=== PATIENT | male | born 1985 | race Caucasian/White ===

== ENCOUNTER 2020-12-11 07:24 | Day surgery (SDC) | payer OTHER ==
[2020-12-07 12:14] LABS: Absolute Lymphocytes (CBC) 1.5 K/uL (0.7-4.9); Basophils % 1.3 % (0-1.3); Hematocrit 44.8 % (39.6-49.0); Lymphocytes % 23.6 % (15.3-44.8); MPV 9.6 fL (7.6-11.3)
--- NOTE | 2020-12-07 12:15 | RAD REPORT ---
EXAM DESCRIPTION: RAD - Chest Pa And Lat (2 Views) - 12/07/2020 11:56 am CLINICAL HISTORY: preop COMPARISON: Chest Pa And Lat (2 Views) dated 03/31/2019; Chest Single View dated 01/08/2017; Chest Fo r Pe Angio dated 01/08/2017 FINDINGS: No evidence of edema or pneumonia. The heart size is within normal limits.No acute osseous abnormality. No significant pleural effusions or pneumothorax. Azygos fissure, a normal variant. Loo p recorder overlies the heart. IMPRESSION: No acute cardiopulmonary disease.
[2020-12-07 12:25] LABS: Protime INR 1.46
[2020-12-07 12:27] LABS: BUN Blood Urea Nitrogen 12 mg/dL (7-18); Bicarbonate 30 mmol/L (21-32); Glucose Level 86 mg/dL (74-106); Potassium 4.4 mmol/L (3.5-5.1); Sodium Level 141 mmol/L (136-145)
--- NOTE | 2020-12-08 08:03 | EKG ---
Test Date: 2020-12-07 Test Time: 10:38:24 Website Optimization Strategist: ANDREY MEASUREMENT RESULTS: Intervals: Rate: 70 IL: 156 QRSD: 94 QT: 368 QTc: 397 [place]: P: 28 IL: 156 QRS: 7 T: 52 INTERPRETIVE STATEMENTS: Normal sinus rhythm Normal ECG Compared to ECG 03/31/2019 12:11:12 Sinus arrhythmia no longer present T-wave abnormality no longer present Electronically Signed On 12-08-20 08:02:58 CDT by Eddy Casarez
[2020-12-11] MEDS ORDERED: CEFAZOLIN/SWI 2gm 2 GM/20 ML SYR ONE (08:08)
[2020-12-11] MEDS ORDERED: Ringers Lactate 1,000 ML IV ONE (08:08)
[2020-12-11] MEDS ORDERED: FENTANYL CITR 100 MCG/2 ML ONE (08:29)
[2020-12-11] MEDS ORDERED: dexAMETHasone 10 MG/ML VIAL ONE (08:29)
[2020-12-11] MEDS ORDERED: ONDANSETRON 4 MG/2 ML VIAL ONE (08:29)
[2020-12-11] MEDS ORDERED: MIDAZOLAM HCL 2 MG/2 ML INJ ONE (08:29)
[2020-12-11] MEDS ORDERED: propofoL 200 MG/20 ML VIAL IV ONE (08:29)
[2020-12-11] MEDS ORDERED: LIDOCAINE 1% MPF 5 ML VIAL ONE (08:29)
[2020-12-11] MEDS ORDERED: KETOROLAC 30 MG/ML INJ ONE (08:29)
[2020-12-11] MEDS ORDERED: PHENAZOPYRIDINE 100MG TAB PO ONE (10:05)
[2020-12-11] MEDS ORDERED: CODEINE 30MG/APAP 300MG TAB PO PRN (10:05)
[2020-12-11 10:43] VITALS: BP 110/62; TEMP 97.8; O2SAT 99
--- NOTE | 2020-12-11 19:10 | OP ---
Date of Procedure: 12/11/2020 Surgeon: JOSE OTT Preoperative Diagnoses: 1.History of embryonal carcinoma of the testis. 2.History of urothelial carcinoma of the bladder primary. 3.Primary diagnosis bladder lesion. Postoperative Diagnoses: 1.History of embryonal carcinoma of the testis. 2.History of urothelial carcinoma of the bladder primary. 3.Primary diagnosis bladder lesion. Principal Procedure: Cystoscopy and bladder biopsies with fulguration. Indication For Procedure: Mr. Kruse presented to the Urology Clinic with a history of embryonal carc inoma of the bladder, who had undergone BEP chemotherapy with a residual mass and subsequent RPLND. He also had a history of urothelial carcinoma of the bladder, and on surveillance cystoscopy, there w ere areas of mucosal irregularity noted lateral to the right ureteral orifice and in the posterior do me on the left. As a result, he was recommended for biopsy of these lesions to rule out underlying u rothelial malignancy. Procedure In Detail: The patient was consented in the preoperative holding area before being transfe rred to the operative suite where general anesthesia was induced. He was given Ancef 2 g IV antimicr obial prophylaxis and pneumo boots were provided for DVT prophylaxis. He was placed in the lithotomy position, padded and secured to the table appropriately. The case was begun after his genitalia was prepped using Hibiclens and draped in standard fashion. Using a 22-Spanish rigid cystoscope to trave rse the urethra and into the bladder with ease, the bladder was surveyed in its entirety. Again note d lateral to the right ureteral orifice were subtle patches of mucosal irregularity. Using narrow ba nd imaging, those areas of mucosal irregularity did evidence potential increased vascularity. As a r esult, an additional lesion was noted within the left posterior and both of these were biopsied in or pattie to adequately sample the lesion. They were sent for pathologic analysis as left posterior dome a nd lateral to the right ureteral orifice. Then, the base of each of these lesions was carefully fulg urated and the bladder was decompressed to ensure no bleeding. When no residual bleeding was noted, the bladder was completely decompressed, and the patient was taken out of lithotomy position. He was then awakened from general anesthesia before being transferred to a stretcher and then to the [facility] room in a good condition. Complications: None. Discharge Disposition: He should follow up in the Urology Clinic to discuss the results of the patho logy within 1-2 weeks. Subsequent management will be determined at that time. HEATHER/KARAN Voice ID: [id number] Report ID: [id number]
== END 2020-12-11 11:04 | disposition home or self-care (01) ==
LOC: OR 07:24
PROVIDERS: ATTEND Urology
PROC: 0TBB8ZX Excision of Bladder, Via Natural or Artificial Opening Endoscopic, Diagnostic (ICD-10-PCS; principal; 2020-12-11 09:00)
DX: D09.0 Carcinoma in situ of bladder (principal); Z85.51 Personal history of malignant neoplasm of bladder; Z85.47 Personal history of malignant neoplasm of testis
CPT/HCPCS: 52204; 93005; 87088; 85025; 87086; 80048; 36415; 85610; 88305 ×2; 85730; 71046; J2704; J2250; J3010; J1100; J0690; J7120; J2405

== ENCOUNTER 2021-03-19 07:02 | Day surgery (SDC) | payer OTHER ==
[2021-03-14 12:37] LABS: BUN Blood Urea Nitrogen 14 mg/dL (7-18); Bicarbonate 28 mmol/L (21-32); Glucose Level 89 mg/dL (74-106); Potassium 4.6 mmol/L (3.5-5.1); Sodium Level 139 mmol/L (136-145)
[2021-03-19] MEDS ORDERED: Ringers Lactate 1,000 ML IV ONE (07:52)
[2021-03-19] MEDS ORDERED: CEFAZOLIN/SWI 2gm 2 GM/20 ML SYR ONE (07:53)
[2021-03-19] MEDS ORDERED: CELECOXIB 100 MG CAPSULE ONE (08:39)
[2021-03-19] MEDS ORDERED: ACETAMINOPHEN 500 MG TAB ONE (08:39)
[2021-03-19] MEDS ORDERED: FENTANYL CITR 100 MCG/2 ML ONE (09:01)
[2021-03-19] MEDS ORDERED: LIDOCAINE 1% MPF 5 ML VIAL ONE (09:01)
[2021-03-19] MEDS ORDERED: propofoL 200 MG/20 ML VIAL IV ONE (09:01)
[2021-03-19] MEDS ORDERED: MIDAZOLAM HCL 2 MG/2 ML INJ ONE (09:01)
[2021-03-19] MEDS ORDERED: CODEINE 30MG/APAP 300MG TAB PO PRN (09:04)
[2021-03-19] MEDS ORDERED: PHENAZOPYRIDINE 100MG TAB PO ONE ×2 (09:04→10:50)
[2021-03-19] MEDS ORDERED: dexAMETHasone 10 MG/ML VIAL ONE (09:31)
[2021-03-19 10:11] VITALS: O2SAT 98
[2021-03-19 10:49] VITALS: BP 123/68; TEMP 97.1
--- NOTE | 2021-03-19 13:07 | OP ---
Surgeon: JOSE OTT Preoperative Diagnosis: Carcinoma in situ of the bladder. Postoperative Diagnoses: 1.Carcinoma in situ of the bladder. 2.Status post induction BCG. Principle Procedures: Cystoscopy using narrow band imaging and bladder biopsies with fulguration. Indication For Procedure: Mr. Kruse presented to Urology Clinic with history of urothelial carcinoma of the bladder, but area of a slight mucosal change visible lateral to the right ureteral orifice. He underwent cystoscopic biopsies, which revealed CIS of the bladder and afterwards was counseled and treated with an induction course of BCG. He presents today for repeat cystoscopy and bladder biopsi es to confirm clearance of the BCG. Procedure In Detail: The patient was consented in the preoperative holding area before being transfe rred to the operative suite where general anesthesia was induced. He was given Ancef 2 g IV antimicr obial prophylaxis and pneumo boots were provided for DVT prophylaxis. He was placed in the lithotomy position, padded and secured to the table appropriately. His genitalia were prepped using Hibiclens and he was draped in standard fashion. The case was begun using a 22-Luxembourgish rigid cystoscope to tra verse the urethra and into the bladder with ease. The bladder was surveyed in its entirety and there were no papillary mucosal lesions, foreign bodies, or stones. There was an area of scar in the post erior wall of the bladder as well as the posterior dome, likely sites of prior resection, as well as an area of scar lateral to the right ureteral orifice, which I had previously biopsied. The mucosa w as mildly irregular at the border of the resection site in the area lateral to the right ureteral carl fice and around the posterior dome slightly to the left site of prior biopsy. The remainder of the b ladder was free of suspicious mucosal lesion or change. I then employed narrow band imaging and surv ey the entirety of the bladder including the areas of slight mucosal change as mentioned earlier and there were really no areas of suspicion on narrow band imaging. However, to confirm clearance of the CIS, multiple biopsies were taken in the region of the right ureteral orifice and extending into the right lateral posterior wall of the bladder. Additionally, 3 biopsies were taken in the region arou nd the posterior dome biopsy site slightly to the left for a total of 7 biopsies taken. These were a ll sent for pathologic analysis, and then I carefully fulgurated each of the sites using a Bugbee ana maría ctrode at a cautery setting of 30. Once each of the sites was carefully fulgurated, I decompressed t he bladder and then made a careful search for bleeding. No active oozing was noted and where any sli ghtly erythematous area of subcutaneous tissue was noted, this was also fulgurated given the need for the patient to resume the Xarelto as soon as possible. Again, once his bladder was completely decom pressed and there was no evidence of ooze at all, the bladder was completely decompressed. I then re filled the bladder and surveyed the bladder neck region exclusively with a 70-degree lens to confirm no additional mucosal lesions. When none were noted, I then decompressed his bladder, removed the cy stoscope, took him out of the lithotomy position and then awakened him from general anesthesia before transferring him to a stretcher and then to the recovery room in good condition. Complications: None. Discharge Disposition: We will send him home with followup in approximately 2 weeks' time and instru ct him to resume his Xarelto within the next 3 days after his urine is preferably clear. Subsequent followup will then be determined, specifically whether to initiate maintenance BCG versus observation or if additional therapy is required. HEATHER/KARAN Voice ID: [id number] Report ID: [id number]
== END 2021-03-19 10:45 | disposition home or self-care (01) ==
LOC: OR 07:02
PROVIDERS: ATTEND Urology
PROC: 0TBB8ZX Excision of Bladder, Via Natural or Artificial Opening Endoscopic, Diagnostic (ICD-10-PCS; principal; 2021-03-19 08:30)
DX: D09.0 Carcinoma in situ of bladder (principal); Z20.822 Contact with and (suspected) exposure to COVID-19
CPT/HCPCS: 87088; 87086; 80048; 36415; 88305; 52204; U0003; J2704; J2250; J3010; J1100; J0690; J7120

== ENCOUNTER 2021-07-16 10:50 | Day surgery (SDC) | payer OTHER ==
[2021-07-11 11:53] LABS: Hematocrit 47.2 % (39.6-49.0); Lymphocytes % 17.7 % (15.3-44.8); MPV 9.3 fL (7.6-11.3); RBC Red Blood Cell Count 5.25 M/uL (4.33-5.43)
[2021-07-11 11:55] LABS: Protime INR 1.52
[2021-07-11 12:07] LABS: Potassium 3.8 mmol/L (3.5-5.1)
[2021-07-16] MEDS ORDERED: Ringers Lactate 1,000 ML IV ONE (10:58)
[2021-07-16] MEDS ORDERED: CEFAZOLIN/SWI 2gm 2 GM/20 ML SYR ONE (10:59)
[2021-07-16] MEDS ORDERED: ACETAMINOPHEN 500 MG TAB ONE (12:15)
[2021-07-16] MEDS ORDERED: FENTANYL CITR 250 MCG/5 ML ONE (13:35)
[2021-07-16] MEDS ORDERED: dexAMETHasone 10 MG/ML VIAL ONE (13:35)
[2021-07-16] MEDS ORDERED: MIDAZOLAM HCL 2 MG/2 ML INJ ONE (13:35)
[2021-07-16] MEDS ORDERED: propofoL 200 MG/20 ML VIAL IV ONE (13:35)
[2021-07-16] MEDS ORDERED: LIDOCAINE 1% MPF 5 ML VIAL ONE (13:35)
[2021-07-16] MEDS ORDERED: ONDANSETRON 4 MG/2 ML VIAL ONE (13:36)
[2021-07-16] MEDS ORDERED: KETOROLAC 30 MG/ML INJ ONE (14:38)
[2021-07-16] MEDS ORDERED: CODEINE 30MG/APAP 300MG TAB PO PRN (15:20)
[2021-07-16] MEDS ORDERED: PHENAZOPYRIDINE 100MG TAB PO ONE ×2 (15:20→16:19)
--- NOTE | 2021-07-16 15:28 | RAD REPORT ---
EXAM DESCRIPTION: RAD - Urethrocystogrphy Retrograde - 07/16/2021 3:04 pm CLINICAL HISTORY: ICD N 20.0 FINDINGS: 8 fluoroscopic spot images obtained. Fluoroscopy time.27 minutes Each ureter was cannulated and contrast administered. Examination was performed by Dr Nielson
[2021-07-16 15:41] VITALS: O2SAT 100
[2021-07-16] MEDS ORDERED: CODEINE 30MG/APAP 300MG TAB ONE (16:13)
[2021-07-16 16:44] VITALS: BP 129/78; TEMP 97.1
--- NOTE | 2021-07-17 01:43 | OP ---
Surgeon: JOSE OTT Preoperative Diagnoses: 1.Carcinoma in situ of the bladder. 2.Elevated risk Cxbladder genetic testing of the urine. Postoperative Diagnoses: 1.Carcinoma in situ of the bladder. 2.Elevated risk Cxbladder genetic testing of the urine. Principal Procedures: 1.Cystoscopy with random and targeted bladder biopsies with fulguration. 2.Bilateral retrograde pyelogram. 3.Bilateral selective ureteral cytologies. 4.Prostatic urethral biopsies x2 with fulguration. Indication For Procedure: Mr. Kruse presented to the Urology Clinic and underwent cystoscopic evalua tion revealing a slightly erythematous patch lateral to the left ureteral orifice. He underwent a bi opsy, which revealed CIS of the bladder, and subsequently underwent induction BCG. Maintenance evalu ation was also without papillary lesion or other strongly suspected tumor cystoscopically, and cytolo gic and fluorescence in situ hybridization studies were also unremarkable, but genetic testing of the urine from the bladder called Cxbladder monitor suggested the potential slightly elevated risk of un diagnosed urothelial malignancy. As a result, after counseling, he elected to be more certain, and s o instead of observing, he elected to undergo definitive operative evaluation with the procedures abo ve. Procedure In Detail: The patient was consented in the preoperative holding area before being transfe rred to the operative suite, where general anesthesia was induced. He was given Ancef 2 g IV antimic robial prophylaxis and pneumo boots were provided for DVT prophylaxis. He was placed in the lithotom y position, padded and secured to the table appropriately. His genitalia were prepped using Hibiclen s and he was draped in standard fashion. The case was begun using a 22-Burmese rigid cystoscope to tr averse the urethra and into the bladder with ease. The bladder was surveyed in its entirety, and the area of prior biopsies within the right lateral wall and lateral to the right ureteral orifice were easily visualized along with some areas of biopsies taken posteriorly and one in the left lateral wal l. No papillary urothelial lesions were noted. A couple of areas of the mucosa were slightly pigmen rhiannon, but no suspicious areas for CIS. There was some hypervascularity at some point posteriorly thro ughout the bladder. As a result, I then turned my attention to the left ureteral orifice, which was cannulated using the tip of a 5-Burmese ureteral access catheter. Selective cytology was then obtaine d by instilling 10 cc of sterile water and then aspirating and allowing several cubic centimeters of urine to drain from the kidney, which was sent for left ureteral wash cytologic analysis. I then per formed a retrograde pyelogram on the left side. 1.Left retrograde pyelography: Using a 70:30 mixture of Omnipaque and saline, contrast was injected via the lumen of the 5-Burmese ureteral access catheter and did propagate up a nondilated distal left ureter into the mid and proximal ureter without evidence of filling defects. The renal pelvis was e ntered, and there was no pelvocaliectasis. The calyces did fill completely and without evidence of b lunting or filling defects. As a result, I removed the 5-Burmese ureteral access catheter and discard ed it. I then turned my attention to the right ureteral orifice, which was cannulated this time usin g a cone-tipped catheter. I have similarly injected 10 cc of sterile water into the ureter and colle cted several cubic centimeters of urine, which was sent as right ureteral wash cytology. I then perf ormed a right retrograde pyelogram. 2.Right retrograde pyelography: Using a 70:30 mixture of Omnipaque and saline, contrast mixture was injected via the lumen of the cone-tipped catheter, and the contrast again propagated up a nondilate d distal into the mid and proximal left ureter before entering the renal pelvis. The renal pelvis wa s already somewhat distended, perhaps from the prior injection of the sterile water as well as the co ntrast, but there were no filling defects noted within the pelvis or the calyces. There was only mil d to moderate pelvocaliectasis noted, but after a few minutes of observation and seeing the contrast emanate from the ureteral orifice once the cone-tipped catheter was removed, the hydronephrosis compl etely resolved and the contrast did efflux rapidly from the right kidney indicative of the absence of obstruction. I then turned my attention back to the bladder, where now biopsies were taken selectively from areas with slightly irregular-appearing mucosa both in the following regions: 1.Posterior. 2.Lateral to the left ureteral orifice. 3.Left lateral wall. 4.Right lateral wall. 5.Dome. Each of these areas was then carefully fulgurated using a Bugbee electrode at a cautery setting of 30 . I then turned my attention to the prostatic urethra, where the cold cup biopsy forceps were again utilized to sample the mucosa within the prostatic urethra at the 5 and the 7 o'clock position just i nside of the bladder neck. Fulguration was performed to stop any bleeding there. The samples were a lso sent for pathologic analysis as prostatic urethral biopsies. Once this was completed, I then nasir veyed his bladder again for any evidence of ongoing bleeding, and fulgurated any residual mucosal ble eding. Once hemostatic, I then left his bladder full and removed the rigid cystoscope. I then place d an 18-Burmese Dey catheter into his bladder with ease and placed 10 cc of sterile water in the bal loon. The catheter was allowed to drain and then was connected to a leg bag. He was awakened from g eneral anesthesia, transferred to a stretcher, and then transferred to the recovery room after I took him out of the lithotomy position. Complications: None. Discharge Disposition: I am discharging him with a prescription for Bactrim Double Strength tablets to take every 12 hours for 3 doses starting at 10 p.m. tonight. We will send him home with the ureth ral catheter, but allow him to remove it himself tomorrow morning at home. Subsequent followup antony d be established in 2-3 weeks to discuss the results of pathology, and he may resume his Xarelto as l stefania as his urine is only light pink-tinged or clear after 2-3 days. HEATHER/MODL Voice ID: [id number] Report ID: [id number]
== END 2021-07-16 16:30 | disposition home or self-care (01) ==
LOC: OR 10:50
PROVIDERS: ATTEND Urology
PROC: 0TB78ZX Excision of Left Ureter, Via Natural or Artificial Opening Endoscopic, Diagnostic (ICD-10-PCS; 2021-07-16)
PROC: 0TB68ZX Excision of Right Ureter, Via Natural or Artificial Opening Endoscopic, Diagnostic (ICD-10-PCS; 2021-07-16)
PROC: 0TBB8ZX Excision of Bladder, Via Natural or Artificial Opening Endoscopic, Diagnostic (ICD-10-PCS; principal; 2021-07-16 12:30)
PROC: 0TBD8ZX Excision of Urethra, Via Natural or Artificial Opening Endoscopic, Diagnostic (ICD-10-PCS; 2021-07-16 12:30)
DX: D09.0 Carcinoma in situ of bladder (principal); Z20.822 Contact with and (suspected) exposure to COVID-19
CPT/HCPCS: 52204; 52354; 93005; 87088; 85025; 87086; 80048; 36415; 88108; 85610; 88305; 85730; 74450; 51610; U0003; J2704; J2250; J3010; J1100; J0690; J7120; J2405

== ENCOUNTER 2025-02-22 15:36 | Emergency (ER) | payer OTHER ==
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
--- NOTE | 2025-02-22 17:05 | RAD REPORT ---
EXAM: CT Head Brain Wo Cont HISTORY: DIZZINESS COMPARISON: None TECHNIQUE: Multiple contiguous axial images were obtained for a CT of the brain without contrast. Sag ittal and coronal reformats were performed. One or more of the following dose reduction techniques were used: Automated exposure control, adjus tment of the mA and kV according to patient size, and iterative reconstruction. Unless otherwise specified, incidental findings do not require dedicated imaging follow-up. FINDINGS: No evidence of hydrocephalus, intracranial hemorrhage, or extra-axial fluid collection. The brain is normal in morphology. The calvarium is intact. The visualized paranasal sinuses and mastoid air cells are essentially clear . IMPRESSION: No evidence of acute intracranial abnormality.
[2025-02-22 17:11] LABS: Absolute Lymphocytes (CBC) 0.9 K/uL (0.7-4.9); Hematocrit 44.6 % (39.6-49.0); Hemoglobin 15.5 g/dL (13.6-17.9); MCH 30.9 pg (27.0-35.0); MCHC 34.6 g/dL (32.0-36.0); MCV 89.3 fL (80-100); MPV 9.8 fL (7.6-11.3); Nucleated RBC Absolute Count 0.0 (0-0); Nucleated Red Blood Cells % 0.4 % (0-0); RBC Red Blood Cell Count 5.00 M/uL (4.33-5.43); White Blood Count 7.00 thou/uL (4.3-10.9)
[2025-02-22 17:21] LABS: ALT/SGPT 28.0 U/L (16-61); Albumin 4.4 g/dL (3.4-5.0); Albumin/Globulin Ratio 1.3 (1.1-1.8); Alkaline Phosphatase 45.0 U/L (45-117); Anion Gap 11.6 mEq/L (5.0-15.0); BUN Blood Urea Nitrogen 18.0 mg/dL (7-18); Bilirubin Indirect, Calculated 1.5 mg/dL (0.2-0.8); Globulin 3.5 g/dL (2.3-3.5); Glucose Level 98.0 mg/dL (74-106)
[2025-02-22 17:25] LABS: AST/SGOT 21.0 U/L (15-37); Magnesium 2.4 mg/dL (1.6-2.4); Potassium 4.6 mEq/L (3.5-5.1)
[2025-02-22 18:59] LABS: Sqamous Epithelial None Seen /HPF (None Seen); Urine Crystals Unidentified Few /HPF (None Seen); Urine Culture Reflex Order NOT NEEDED; Urine Microscopic Reflex YN ORDER UMIC
--- NOTE | 2025-02-22 19:58 | EDPHYS ---
Physician Documentation [facility] Name: Valentino Kruse Age: 40 yrs Sex: Male : 1985 Arrival Date: 02/22/2025 Time: 15:36 Bed 10 Private MD: ED Physician Shayne Brody HPI: 02/22 19:35 This 40 yrs old Male presents to ER via Ambulatory with complaints of nausea. kb 19:49 Patient is a 40-year-old male who presents for nausea that started 1 hour ago. States kb he had lower abdominal pain when he woke up this morning that has resolved. States he was sitting in a meeting about 1 hour ago became nauseous, the room started spinning and he felt he was going to pass out. States the dizziness has subsided but he is still nauseous.. Historical: - Allergies: 15:54 Bactrim; ll1 - PMHx: 15:54 Heart Murmur; PE; testicular cancer; BLADDER CA (testicular cancer); Hypertensive ll1 disorder; - PSHx: 15:54 CARDIAC ABLATION; ll1 - Social history:: Smoking status: Reported history of juuling and/or vaping. ROS: 19:17 Constitutional: As per HPI kb Exam: 17:09 Head/Face: Normocephalic, atraumatic. ENT: Moist Mucous membranes Cardiovascular: kb Regular rate Respiratory: Respirations even and unlabored. No increased work of breathing. Talking in full sentences Abdomen/GI: Soft, non-tender. No distention Skin: Warm, dry with normal turgor. Normal color. MS/ Extremity: Pulses equal, no cyanosis. Neurovascular intact. Full, normal range of motion. Neuro: Awake and alert, GCS 15, oriented to person, place, time, and situation. 17:09 Constitutional: The patient appears alert, awake, uncomfortable, 17:09 ECG was reviewed by the Attending Physician. Vital Signs: 15:49 BP 126 / 76; Pulse 80; Resp 16; Temp 98.4; Pulse Ox 100% ; Weight 110.68 kg; Height 6 ll1 ft. 7 in. ; Pain 0/10; 15:49 Body Mass Index 27.49 (110.68 kg, 200.66 cm) ll1 15:49 Pain Scale: Adult ll1 MDM: 15:45 Medical Screening Exam initiated kb 19:17 Data reviewed: vital signs, nurses notes. kb 19:59 Differential diagnosis: urinary tract infection, Vertigo, TIA, idiopathic dizziness, kb dehydration, abnormal electrolytes, arrhythmia. Historians other than the Patient: Spouse/Significant Other: Spouse. Counseling: I had a detailed discussion with the patient and/or guardian regarding the historical points, exam findings, and any diagnostic results supporting the discharge/admit diagnosis, lab results, radiology results, the need for outpatient follow up, a family practitioner, to return to the emergency department if symptoms worsen or persist or if there are any questions or concerns that arise at home. ED course: Patient states he is feeling much better, all symptoms have resolved at this time. States he does not think that he needs the medication that was initially ordered. Will cancel medications and let patient go home. Patient will follow-up with PCP. Educated on return precautions.. 02/22 15:54 Order name: Basic Metabolic Panel; Complete Time: 17:30 kb 02/22 15:54 Order name: CBC with Diff; Complete Time: 17:18 kb 02/22 15:54 Order name: Hepatic Function; Complete Time: 17:30 kb 02/22 15:54 Order name: Magnesium; Complete Time: 17:30 kb 02/22 15:54 Order name: UA Rfx Javier Cult if indicated; Complete Time: 19:00 kb 02/22 15:54 Order name: CT Head Brain wo Cont; Complete Time: 17:18 kb 02/22 15:54 Order name: Cardiac monitoring; Complete Time: 19:49 kb 02/22 15:54 Order name: EKG - Nurse/Tech; Complete Time: 17:25 kb 02/22 15:54 Order name: IV Saline Lock; Complete Time: 16:54 kb 02/22 15:54 Order name: Labs collected and sent; Complete Time: 16:54 kb 02/22 15:54 Order name: NPO; Complete Time: 19:50 kb 02/22 15:54 Order name: O2 Per Protocol; Complete Time: 19:49 kb 02/22 15:54 Order name: O2 Sat Monitoring; Complete Time: 19:49 kb 02/22 15:54 Order name: Orthostatics; Complete Time: 20:02 kb EC:09 Rate is 76 beats/min. Rhythm is regular. QRS [place] is Normal. CT interval is normal at kb 164 msec. QRS interval is normal at 84 msec. QT interval is normal at 405 msec. Administered Medications: 20:00 CANCELLED (Patient Refused): ns 0.9% 1000 ml IV at 1000 ml once; to be given as a bolus kb over 60 minutes 20:00 CANCELLED (Patient Refused): ondansetron 4 mg IVP once; over 2 minutes kb Disposition Summary: 02/22/25 19:57 Discharge Ordered Notes: Location: Home kb Condition: Stable kb Diagnosis - Nausea with vomiting, unspecified kb - Dizziness and giddiness kb Followup: kb - With: Emergency Department - When: As needed - Reason: Worsening of condition Followup: kb - With: Private Physician - When: 2 - 3 days - Reason: Recheck today's complaints, Continuance of care, Re-evaluation by your physician Discharge Instructions: - Discharge Summary Sheet kb - Nausea and Vomiting, Adult, [id number] kb - Vertigo, [id number] kb - Dizziness, [id number] kb Forms: - Medication Reconciliation Form kb - Antibiotic Education kb - Prescription Opioid Use kb - Patient Portal Instructions kb - Leadership Thank You Letter kb Prescriptions: - ondansetron 4 mg Oral Tablet,disintegrating - take 1 tablet ORAL route every 6 hours as needed for nausea and vomiting; 12 kb tablet; Refills: 0, Product Selection Permitted Signatures: Dispatcher [employer] EDLola Barton, VERO-C PSYCHOLOGICAL SCIENCE PROFESSOR-Aron Manuel RN RN ll1 Corrections: (The following items were deleted from the chart) 15:55 15:55 BASIC METABOLIC PANEL+C.LAB.BRZ ordered. EDMS EDMS 15:55 15:55 CBC+H.LAB.BRZ ordered. EDMS EDMS 15:55 15:55 HEPATIC FUNCTION+C.LAB.BRZ ordered. EDMS EDMS 15:55 15:55 MAGNESIUM+C.LAB.BRZ ordered. EDMS EDMS 15:55 15:55 Head Brain Wo Cont+CT.RAD.BRZ ordered. EDMS EDMS 15:55 15:55 UA Rfx Javier Cult if indicated+U.LAB.BRZ ordered. EDMS EDMS 20:00 15:55 NS 0.9% IV 1000 ml IV at 1000 ml once; to be given as a bolus over 60 minutes kb ordered. kb 20:00 15:55 Ondansetron IVP 4 mg IVP once; over 2 minutes ordered. kb kb
--- NOTE | 2025-02-22 19:58 | ER ---
Nurse's Notes [facility] Name: Valentino Kruse Age: 40 yrs Sex: Male : 1985 Arrival Date: 02/22/2025 Time: 15:36 Bed 10 Private MD: Diagnosis: Nausea with vomiting, unspecified;Dizziness and giddiness Presentation: 02/22 15:49 Chief complaint: Patient states: HE BECAME NAUSEOUS, DIZZY WITH COLD SWEATS ABOUT 45 ll1 MINS AGO. PT REPORTS WOKE THIS MORNING WITH LOWER STOMACH PAIN ALSO. Coronavirus screen: At this time, the client does not indicate any symptoms associated with coronavirus-19. Ebola Screen: No symptoms or risks identified at this time. Initial Sepsis Screen: Does the patient meet any 2 criteria? No. Patient's initial sepsis screen is negative. Does the patient have a suspected source of infection? No. Patient's initial sepsis screen is negative. Risk Assessment: Do you want to hurt yourself or someone else? Patient reports no desire to harm self or others. Onset of symptoms was February 22, 2025. 15:49 Method Of Arrival: Ambulatory ll1 15:49 Acuity: CRESCENCIO 3 ll1 Triage Assessment: 15:54 General: Appears uncomfortable, Behavior is calm, cooperative, appropriate for age. ll1 Pain: Denies pain. Neuro: Reports dizziness. GI: Reports nausea, vomiting. Historical: - Allergies: 15:54 Bactrim; ll1 - PMHx: 15:54 Heart Murmur; PE; testicular cancer; BLADDER CA (testicular cancer); Hypertensive ll1 disorder; - PSHx: 15:54 CARDIAC ABLATION; ll1 - Social history:: Smoking status: Reported history of juuling and/or vaping. Vital Signs: 15:49 BP 126 / 76; Pulse 80; Resp 16; Temp 98.4; Pulse Ox 100% ; Weight 110.68 kg; Height 6 ll1 ft. 7 in. ; Pain 0/10; 15:49 Body Mass Index 27.49 (110.68 kg, 200.66 cm) ll1 15:49 Pain Scale: Adult ll1 ED Course: 15:40 Patient arrived in ED. ll1 15:44 Lola Mancilla FNP-C [facility]. kb 15:44 Shayne Brody MD is Attending Physician. kb 15:54 Triage completed. ll1 15:54 Arm band placed on right wrist. ll1 16:23 CT Head Brain wo Cont In Process Unspecified. EDMS 16:45 Missed attempt(s): 22 gauge in left antecubital area. Bleeding controlled, band aid bc6 applied, catheter tip intact. 16:54 Basic Metabolic Panel Sent. bc6 16:54 CBC with Diff Sent. bc6 16:55 Hepatic Function Sent. bc6 16:55 Magnesium Sent. bc6 16:55 Initial lab(s) drawn, by ny, sent to lab. Inserted saline lock: 22 gauge in left bc6 forearm, using aseptic technique. Blood collected. Flushed with 10 mL NS. 17:26 EKG done, by player piano technician. reviewed by Shayne Brody MD. ts3 19:43 Oswaldo Guevara, RN is Primary Nurse. rg5 Administered Medications: 20:00 CANCELLED (Patient Refused): ns 0.9% 1000 ml IV at 1000 ml once; to be given as a bolus kb over 60 minutes 20:00 CANCELLED (Patient Refused): ondansetron 4 mg IVP once; over 2 minutes kb Outcome: 19:57 Discharge ordered by . kb 20:15 Patient left the ED. rg5 Signatures: Dispatcher [employer] EDMA Lola Mancilla, INK MAKER-C INK MAKER-CkAron Vega, RN RN ll1 Debi Hayes bc6 Oswaldo Guevara, RN RN rg5 Giselle Sanchez ts3 Corrections: (The following items were deleted from the chart) 15:55 15:54 General: Appears ill, Behavior is calm, cooperative, appropriate for age, ll1 ll1
[2025-02-22 20:59] VITALS: BP 126/76; TEMP 98.4; O2SAT 100
== END 2025-02-22 20:15 | disposition home or self-care (01) ==
LOC: ER 15:36
DX: R11.2 Nausea with vomiting, unspecified (principal); R42 Dizziness and giddiness; I10 Essential (primary) hypertension; Z85.47 Personal history of malignant neoplasm of testis; Z85.51 Personal history of malignant neoplasm of bladder
CPT/HCPCS: 36415; 70450; 80048; 80076; 81001; 83735; 85025; 93005; 99283